=== PATIENT | male | born 1975 | race Asian ===

== ENCOUNTER → 2024-07-29 | Outpatient (CLI) | payer BC, OTHER ==
--- NOTE | 2024-07-29 17:57 | XR ---
EXAMINATION TYPE: XR wrist complete RT, XR hand complete RT DATE OF EXAM: 07/29/2024 5:52 PM INDICATION: Patient age:Male; 48 years old; Reason for study: UNSPECIFIED SPRAIN OF RIGHT WRIST, INITIAL ENCOUNTER; [facility]. pain COMPARISON: None TECHNIQUE: 4 views of the right wrist. Frontal, navicular, lateral, and oblique. The right hand was evaluated in [place], oblique, lateral projections. FINDINGS: No acute osseous pathology, joint dislocation, or joint effusion. No evidence of any soft tissue swelling is seen. IMPRESSION: No acute osseous pathology. [facility], , 07/29/2024 5:54 PM
== END | disposition home or self-care (01) ==
LOC: RADXRMAIN 17:24
PROVIDERS: ATTEND Emergency Medicine
DX: S63.501A Unspecified sprain of right wrist, initial encounter (principal); X58.XXXA Exposure to other specified factors, initial encounter